=== PATIENT | female | born 1960 | race Caucasian/White ===

== ENCOUNTER → 2019-02-24 | Outpatient (CLI) | payer OTHER, SELFPAY | END | disposition home or self-care (01) | LOC: OIH 14:00 | PROVIDERS: ATTEND Internal Medicine Cardiovascular Disease | DX: Z13.6 Encounter for screening for cardiovascular disorders (principal) | CPT/HCPCS: 75571 ==

== ENCOUNTER → 2019-02-25 | Outpatient (CLI) | payer BC | END | disposition home or self-care (01) | LOC: SHCH 11:37 → EDUNIT# 03-04 11:00 | PROVIDERS: ATTEND Internal Medicine Cardiovascular Disease | DX: I35.1 Nonrheumatic aortic (valve) insufficiency (principal) | CPT/HCPCS: 93306 ==

== ENCOUNTER → 2019-03-05 | Outpatient (CLI) | payer BC | END | disposition home or self-care (01) | LOC: SHCH 07:57 → EDUNIT# 03-06 08:00 | PROVIDERS: ATTEND Internal Medicine Cardiovascular Disease | DX: R19.00 Intra-abdominal and pelvic swelling, mass and lump, unspecified site (principal); E78.5 Hyperlipidemia, unspecified | CPT/HCPCS: 93978 ==